=== PATIENT | male | born 1985 | race Asian ===

== ENCOUNTER 2019-05-01 09:59 | Emergency (ER) | payer OTHER ==
[~2019-05-01] VITALS: Ht 177.8 cm; Wt 72.6 kg
[2019-05-01 10:48] VITALS: BP 160/74; TEMP 98.2
== END 2019-05-01 10:58 | disposition home or self-care (01) ==
LOC: ED 09:59
DX: K29.70 Gastritis, unspecified, without bleeding (principal)
CPT/HCPCS: 99282